=== PATIENT | male | born 1965 ===

== ENCOUNTER 2024-03-01 23:48 | Observation (INO) ==
[2024-03-02] MEDS ORDERED: Sulfur Hexaflouride MICROSPHR 25 MG VIAL IV PRN (01:55)
[2024-03-02] MEDS: HYDROmorphone 0.5 MG/0.5 ML SYRINGE IV SLOW PU PRN (02:10)
[2024-03-02] MEDS: Lidocaine PATCH 5% PATCH TRANSDERM SCH (02:28)
[2024-03-02] MEDS: Morphine 2 MG/ML SYRINGE IV PRN (03:19)
[2024-03-02] MEDS: HYDROmorphone 1 MG/1 ML SYRINGE IV SLOW PU ONE ×4 (04:59→20:28)
[2024-03-02] MEDS ORDERED: HYDROmorphone 1 MG/1 ML SYRINGE IV SLOW PU PRN ×2 (05:12→05:53)
[2024-03-02] MEDS: Morphine 2 MG/ML SYRINGE IV ONE (05:16)
[2024-03-02 06:46] LABS: Hematocrit 42.8 % (38-53); Hemoglobin 14.9 g/dL (13.2-16.3); Mean Corpuscular Hemoglobin 30.2 pg (27-33); Mean Corpuscular Hgb Conc 34.7 g/dL (31-36); Mean Platelet Volume 8.6 fL (7.5-11.2); Platelet Count 195 10^3/uL (150-450); Red Blood Count 4.91 10^6/uL (4.06-5.63); Red Cell Distribution Width 13.3 % (12-17); White Blood Count 12.5 10^3/uL (3.6-10.2)
[2024-03-02 07:01] LABS: Calcium 9.2 mg/dL (8.6-10.3); Creatinine, Serum 0.91 mg/dL (0.67-1.17); Magnesium 2.1 mg/dL (1.9-2.7); Potassium 4.1 mmol/L (3.5-5.0); eGFR CKD-EPI 98.3 (>60)
[2024-03-02] MEDS: HYDROmorphone 1 MG/1 ML SYRINGE IV SLOW PU PRN ×2 (07:29→19:45)
[2024-03-02] MEDS: Ondansetron 4 mg VIAL 2 MG/ML 2 ml VIAL IV ONE (09:02)
[2024-03-02 11:17] LABS: High Sensitivity Troponin 1 Hr 5 pg/mL (<20)
[2024-03-02] MEDS ORDERED: Naloxone Nasal Spray 4 MG/0.1 ML NASAL.SPR INTRANASAL PRN (19:13)
[2024-03-03] MEDS: HYDROmorphone 0.5 MG/0.5 ML SYRINGE IV ONE (05:21)
[2024-03-03 05:56] LABS: Hematocrit 41.9 % (38-53); Hemoglobin 14.9 g/dL (13.2-16.3); Mean Corpuscular Hemoglobin 30.9 pg (27-33); Mean Corpuscular Hgb Conc 35.6 g/dL (31-36); Mean Corpuscular Volume 86.9 fL (80-97); Mean Platelet Volume 8.6 fL (7.5-11.2); Platelet Count 207 10^3/uL (150-450); Red Blood Count 4.82 10^6/uL (4.06-5.63); Red Cell Distribution Width 13.4 % (12-17); White Blood Count 13.8 10^3/uL (3.6-10.2)
[2024-03-03 06:12] LABS: Calcium 9.3 mg/dL (8.6-10.3); Creatinine, Serum 0.88 mg/dL (0.67-1.17); Potassium 4.6 mmol/L (3.5-5.0); eGFR CKD-EPI 100.3 (>60)
[2024-03-03 07:44] LABS: C Reactive Protein 153.66 mg/L (<8.01)
[2024-03-03] MEDS ORDERED: Ondansetron 4 mg VIAL 2 MG/ML 2 ml VIAL IV PRN (08:02)
[2024-03-03] MEDS ORDERED: HYDROmorphone 1 MG/1 ML SYRINGE IV SLOW PU PRN (08:14)
[2024-03-03] MEDS ORDERED: Magnesium Hydroxide LIQ 30 ML UDC PO PRN (09:46)
[2024-03-03] MEDS ORDERED: Polyethylene Glycol 3350 17 GM PACKET PO PRN (09:46)
[2024-03-03] MEDS ORDERED: Senna TAB 8.6 mg TAB PO PRN (09:46)
[2024-03-03] MEDS: Magnesium Hydroxide LIQ 30 ML UDC PO SCH (21:31)
[2024-03-04 05:24] LABS: ABS Eosinophils 0.6 10^3/uL (0.0-0.5); ABS Lymphocytes 0.9 10^3/uL (1.0-4.8); ABS Monocytes 1.1 10^3/uL (0.0-1.1); ABS Neutrophils 8.2 10^3/uL (1.5-7.6); Eosinophil % 5.6 %; Hematocrit 41.9 % (38-53); Hemoglobin 14.3 g/dL (13.2-16.3); Lymphocyte % 8.3 %; Mean Corpuscular Hgb Conc 34.1 g/dL (31-36); Mean Platelet Volume 8.6 fL (7.5-11.2); Platelet Count 226 10^3/uL (150-450); Red Blood Count 4.76 10^6/uL (4.06-5.63); Red Cell Distribution Width 13.4 % (12-17); White Blood Count 10.8 10^3/uL (3.6-10.2)
[2024-03-04 05:37] LABS: Calcium 9.4 mg/dL (8.6-10.3); Creatinine, Serum 0.96 mg/dL (0.67-1.17); Potassium 4.3 mmol/L (3.5-5.0); eGFR CKD-EPI 92.2 (>60)
[2024-03-04 09:47] VITALS: BP 130/84
== END 2024-03-04 14:05 | disposition home or self-care (01) ==
LOC: MEDTELE → SUATTDRO 03-02 00:46
PROVIDERS: ADMIT Internal Medicine; ATTEND Hospitalist